=== PATIENT | female | born 1965 | race Caucasian/White ===

== ENCOUNTER 2021-01-24 11:56 | Emergency (ER) | payer BC ==
[2021-01-24 12:03] VITALS: RESP 18
[2021-01-24] MEDS ORDERED: LIDOCAINE 1% INJ 10MG/ML (20 ML MDV) SQ ONE (12:05)
[2021-01-24] MEDS ORDERED: BACITRACIN OINT 1 EACH PACKET TOPICAL ONE (12:55)
--- NOTE | 2021-01-24 13:11 | ED ---
Wound/Laceration HPI - General Chief Complaint: Wound/Laceration Stated Complaint: Finger injury/Lac Time Seen by Provider: 01/24/21 12:04 Source: patient Mode of arrival: ambulatory Limitations: no limitations - History of Present Illness Initial Comments: 55-year-old female presents to the emergency department with a chief complaint of laceration that occurred about one hour prior to arrival. States she cut herself on a lawnmower blade. The injury occurred on the palmar aspect of the left fourth digit. She reports pain at the laceration site. She reports some bleeding which is since resolved. States she is able to move the finger without any difficulties. Her tetanus is up-to-date. - Related Data Allergies Allergy/AdvReac Type Severity Reaction Status Date / Time No Known Allergies Allergy Verified 01/24/21 12:03 Review of Systems ROS Statement: Those systems with pertinent positive or pertinent negative responses have been documented in the HPI. ROS Other: All systems not noted in ROS Statement are negative. Past Medical History Past Medical History: No Reported History History of Any Multi-Drug Resistant Organisms: None Reported Past Surgical History: No Surgical Hx Reported Smoking Status: Never smoker Past Alcohol Use History: None Reported Past Drug Use History: None Reported General Exam Limitations: no limitations General appearance: alert, in no apparent distress Head exam: Present: atraumatic, normocephalic, normal inspection Eye exam: Present: normal appearance, PERRL, EOMI Pupils: Present: normal accommodation ENT exam: Present: normal exam, normal oropharynx, mucous membranes moist, TM's normal bilaterally, normal external ear exam Neck exam: Present: normal inspection, full ROM. Absent: tenderness Respiratory exam: Present: normal lung sounds bilaterally. Absent: respiratory distress, wheezes, rales, rhonchi, stridor, chest wall tenderness, accessory muscle use Cardiovascular Exam: Present: regular rate, normal rhythm, normal heart sounds. Absent: systolic murmur Extremities exam: Present: full ROM (She is able to fully move the finger that is lacerated without difficulties), tenderness (Tenderness at laceration site), normal capillary refill, other (Palpable ulnar and radial pulses bilaterally). Absent: normal inspection (Sedan with a laceration on the palmar aspect of the left fourth digit), pedal edema, joint swelling, calf tenderness Back exam: Present: normal inspection, full ROM. Absent: tenderness, CVA tenderness (R), CVA tenderness (L) Neurological exam: Present: alert, oriented X3 Psychiatric exam: Present: normal affect, normal mood Skin exam: Present: warm, dry, intact, normal color Course Vital Signs 01/24/21 12:01 Temperature 98.8 F Pulse Rate 101 H Respiratory 18 Rate Blood Pressure 183/82 O2 Sat by Pulse 98 Oximetry Medical Decision Making - Medical Decision Making 55-year-old female presents emergency Department with a chief complaint of a laceration. Laceration site was thoroughly irrigated with saline and Betadine. No visible bone or tendons. She still fully able to move the finger without difficulties. Normal cap refill. Otherwise neurovascularly intact. This was repaired with 7 sutures. Patient's motor procedure well. Advised to return for suture removal. Tetanus is up-to-date. Case discussed with Dr. Yu. Disposition Clinical Impression: Laceration Disposition: HOME SELF-CARE Condition: Stable Instructions (If sedation given, give patient instructions): Care For Your Stitches (DC), Laceration (DC) Additional Instructions: Please return to the emergency room in 8-10 days to have sutures removed. Please watch for any signs of infection which may include increased pain, swelling, redness, fever or chills. Please return to emergency room for any signs of infection do occur. Please use clean soap and water over the area to prevent scabbing over your stitches. Please leave wound covered for the first 24-48 hours and then leave wound open to air. Please return to the emergency room for any other concerns. Is patient prescribed a controlled substance at d/c from ED?: No Referrals: Cristobal Yanes MD [Primary Care Provider] - 1-2 days Time of Disposition: 13:10
[2021-01-24 13:22] VITALS: BP 169/93; PULSE 69; TEMP 98.3
== END 2021-01-24 13:28 | disposition home or self-care (01) ==
LOC: EC 11:56
DX: S61.215A Laceration without foreign body of left ring finger without damage to nail, initial encounter (principal); W31.89XA Contact with other specified machinery, initial encounter
CPT/HCPCS: 99282; 12001; J2001

== ENCOUNTER 2022-03-11 13:20 | Day surgery (SDC) | payer BC ==
[2022-03-10 08:54] VITALS: BMI 30.7
[~2022-03-11 13:20] MED LIST: LACTATED RINGERS 1,000 ML IV SCH
[2022-03-11 13:38] VITALS: TEMP 96.9
[2022-03-11] MEDS ORDERED: fentaNYL (PF) 50 MCG/ML 2 ML AMP ONE (14:13)
[2022-03-11] MEDS ORDERED: MIDAZOLAM 2 MG/2 ML VIAL ONE (14:13)
[2022-03-11] MEDS ORDERED: ROPIVACAINE 5 MG/ML 20 ML AMPULE ONE (14:17)
[2022-03-11] MEDS ORDERED: DEXAMETHASONE SOD PHOSPHATE 10 MG/ML 1 ML VIAL ONE (14:17)
[2022-03-11] MEDS ORDERED: IV FLUID CONTINUATION 1,000 ML IV ONE (14:45)
--- NOTE | 2022-03-11 14:49 | FL ---
EXAMINATION TYPE: FL guided pain mgmt statistic DATE OF EXAM: 03/11/2022 CLINICAL HISTORY: Neck pain. TECHNIQUE: Fluoroscopy. COMPARISON: None. FINDINGS: Fluoroscopic guidance was provided during pain relief procedure performed by Dr. Ybarra . A total of 19 seconds of fluoroscopic time was utilized during the procedure and remained spot imag es are acquired. Images acquired shows needle localization in the cervical spine. IMPRESSION: As Above.
--- NOTE | 2022-03-11 14:49 | P.PCN ---
Date of Procedure: 03/11/22 Description of Procedure: PREOPERATIVE DIAGNOSIS: Cervical Facet syndrome /cervical spondylosis. POSTOPERATIVE DIAGNOSIS: Cervical Facet syndrome /cervical spondylosis. PROCEDURES: Left cervical C5-C6, and C6-C7 medial branch injections, with fluoroscopic guidance, SURGEON: Ap Ybarra ANESTHESIA: 4ml of Local lidocaine 1% , and IV sedation with : versed 2mg, and Fentanyl 100 mcg EBL: None Specimen removed: None Fluoroscopic image: Saved to electronic medical records. PROCEDURE INDICATION: Patient had chronic neck pain. He tried conservative therapy with minimal benefits. Came here for intervention procedure. PROCEDURE DESCRIPTION: The patient was seen and identified in the preoperative area. Risks, benefits, complications, and alternatives were discussed with the patient. The patient agreed to pursue with the procedure and signed the consent. IV was started and vital signs were stable. Patient was taken to the procedure room and time out was completed. The patient was placed in the prone position on the procedure table and cervical area was prepped with ChloraPrep 1 and draped in the usual sterile fashion. Critical pause was taken. Vital signs were closely monitored during the procedure. Using AP fluoroscopy, left side the waists of lateral margins of C5, C6 , and C7 were identified and localized with 1% lidocaine. We used 25-gauge 3-1/2 inch spinal needles 3 used for the procedure. Using the posterior approach, spinal cannulas were guided by anterior posterior fluoroscopy to the waists of the lateral masses of C5, C6, and C7. Needle tip position was confirmed at the centroid of the trapezoids of C5, C6 and C7 with lateral fluoroscopy. After ne gative aspiration of CSF and blood and with no paresthesias 0.5 mL of block solution injected at each site. Block solution contained 10 MG of dexamethasone and 2 mL of preservative-free ropivacaine 0.5%. Rogers were removed intact. Rogers removed intact. Skin was cleansed and bandages were applied. COMPLICATIONS: None. DISPOSITION / PLANS: The patient was placed in a supine position and transferred to the recovery area in a stable condition for observation and was discharged from the recovery room after meeting discharge criteria. Home discharge instructions given to the patient by the staff. The patient was reexamined prior to discharge. Scheduled to follow up with the pain clinic in 4 weeks duration.
[2022-03-11 15:03] VITALS: BP 138/67; PULSE 87; RESP 17
== END 2022-03-11 15:20 | disposition home or self-care (01) ==
LOC: ORPAIN 13:20
DX: M47.812 Spondylosis without myelopathy or radiculopathy, cervical region (principal)
CPT/HCPCS: 64490; 64491; J2250; J1100; J3010; J2795

== ENCOUNTER → 2022-04-04 | Outpatient (CLI) | payer BC ==
[2022-04-04 13:11] VITALS: BP 147/84; PULSE 76; RESP 18; TEMP 98.2
--- NOTE | 2022-04-04 14:21 | P.PAINPG ---
PQRS Measure Charge Sheet Comment: A 56 yr old female with a history of severe and chronic neck pain secondary to degenerative disc diseases and spondylosis with facet arthropathy presents today for evaluation s/p L facet block of the medial branches C5-C6, C6-C7 #1. Pt states she experienced 80% pain relief x 2 days s/p procedure. Pain level is currently at 4/10 in intensity, constant, numbing, sharp in character with shooting pain towards the L shoulder and L hand. Pain is provoked by gripping or overhead reaching. Pain is alleviated with medications (Ibuprofen), ice, repositioning and rest. Interventional pain procedures completed include L MBB C5-C6, C6-C7 x1 Patient is currently on Ibuprofen Patient denies any side effects of the medication(s), denies excessive drowsiness or sleepiness, denies suicidal ideation and reports that the current pain medication is helping to control the pain and improve activities of daily living. Patient denies any motor or sensory deficits. Patient denies any fever or night sweats, denies any change in the bowel movements or urination. Physical Examination: -Constitutional: Cooperative. Not in acute distress . - Neurologic: Cranial nerve II to XII intact. No focal neurological deficits. - Psychatric: Alert & oriented x 3. Matching mood & appropriate affect. Judgment and insight intact. - Musculoskeletal: Cervical spine: Muscle bulk/ tone/ strength in the bilateral upper extremities normal Vertebral body tenderness to palpation over Spurling test positive Distraction test positive Facet loading test positive over L C5-C6, C6-C7 w accompanying jump reflex Thoracic spine Muscle bulk / tone/ strength in the bilateral paraspinal muscles normal Vertebral body tender to palpation over Facet loading test positive Lumbar spine: Motor bulk/ tone/ strength lower extremities , thigh and legs : 5/5 Deep tendon reflexes : Normal Knee Jerk. Normal Ankle Jerk . Vertebral body tenderness to palpation over Lumbar Facet Loading Test positive Straight Leg Raise: positive at 30 degrees right side/ left side Gaenslen's Test positive Sacral spine : Severe tenderness over the Sacroiliac joint: right side / left side Range of motion: Flexion of the lumbar spine <60 degrees Range of motion: Extension of the lumbar spine <20 degrees Gaenslen's Test positive New's Test positive Stevenson test: positive right side / left side Thigh Thrust Test Sacral Thrust Test Assessment and plan: Chronic neck pain secondary to degenerative disc disease, spondylosis with facet arthropathy without myelopathy Recommendation of L facet block of the medial branches C5-C6, C6-C7 #2. May need a series of injections, up until RFA, for optimal pain relief. Risks, benefits of procedure discussed and pt verbalized understanding. Denies anticoagulant use or medical history of diabetes. All patient questions answered MAPS reviewed and it was appropriate. I have spent less than 30 minutes on patient care today. Dr Gomez was available by phone for the evaluation of this patient. The time was used to review the medical records including relevant urine studies and Prescription history (MAPs), review of the available imaging, evaluation and examination of the patient, coordination of care with the medical staff and if applicable referring physicians, as well as creation of the medical record PQRS Narrative: Hx Alcohol Use (MH) Yes: occasionally Home Medications: Ambulatory Orders No Known Home Medications 01/13/22 Controlled Substance Measures - Controlled Substance Measures Is patient prescribed a controlled substance at discharge?: No
== END ==
LOC: PNWHC3 12:38
PROVIDERS: ATTEND Specialist
DX: M50.30 Other cervical disc degeneration, unspecified cervical region (principal); M47.812 Spondylosis without myelopathy or radiculopathy, cervical region; G89.29 Other chronic pain
CPT/HCPCS: 99211